=== PATIENT | female | born 1975 | race Caucasian/White ===

== ENCOUNTER 2023-03-25 11:44 | Day surgery (SDC) | payer OTHER ==
[~2023-03-25] VITALS: Ht 167.6 cm; Wt 104.5 kg
[~2023-03-25 11:44] MED LIST: COZAAR25 MG PO; MULTI VITAMIN1 EACH PO; SYNTHROID25 MCG PO; VITAMIN D310 MC4 PO
[2023-03-25 12:07] VITALS: BP 129/82
--- NOTE | 2023-03-25 13:28 | NUR ---
UPDATED PATIENT ON WAIT TIME FOR SURGERY. PROVIDED PATIENT WITH ANOTHER WARM BLANKET. NO OTHER NEEDS AT THIS TIME.
[2023-03-25 15:34] VITALS: BP 112/92
--- NOTE | 2023-03-25 15:59 | NUR ---
03/25/23 1559 Dona Trammell 1513 PT ARRIVED IN PACU AWAKE WITH NO C/O'S. ABD SOFT. 1520 SITTING UP IN BED SIPPING ON WATER. 1530 DR AT BEDSIDE. ALL QUESTIONS ANSWERED. 1542 DC INSTRUCTIONS GIVEN. LEFT VIA W/C.
--- NOTE | 2023-03-25 19:08 | OR ---
[facility] [address], [place] [address] Signed DATE OF OPERATION: 03/25/2023 SURGEON: Viola Birmingham MD PREOPERATIVE DIAGNOSIS: History of polyps five years ago (2017) [place], [place]. POSTOPERATIVE DIAGNOSIS: Sigmoid diverticulosis. PROCEDURE: Total colonoscopy to cecum. ANESTHESIA: Intravenous sedation; fentanyl 200 mcg and Versed 8 mg. INDICATIONS: This 47-year-old white woman is a patient of Lars Jeffers PA-C, who was referred for screening colonoscopy. She underwent colonoscopy in [address] Liu in [place]. She was recommended to have a three year interval colonoscopy, but due to the COVID pandemic, she was unable to do so. Three months previously, she had rectal bleeding which she no longer has. She has no family history of colon cancer. She did have hysterectomy for uterine cancer in 2017. She currently has no rectal bleeding and no known family history of colon cancer. She is here for surveillance colonoscopy, understands the risk of bleeding, infection, and perforation. FINDINGS: The prep was excellent. Complete colonoscopy was undertaken with visualization of the cecum. There were diverticula of the sigmoid colon but they were not extensive and not particularly large. There were no other findings of note. DESCRIPTION OF PROCEDURE: The patient was brought to the endoscopy suite and placed in the lateral decubitus position, given intravenous sedation to the point of slurred speech and nystagmus. Digital rectal examination was normal. An Olympus video colonoscope was passed in the rectum and manipulated throughout the colon noting scattered diverticula of the sigmoid and left colon. The scope was ultimately passed to the proximal ascending colon. Additional support was given to allow for further advancement of the scope. The scope did not fully intubate the cecum, Electronically Signed By: VIOLA BIRMINGHAM MD 03/25/23 1908 PATIENT NAME: SYDNI POSEY OPERATIVE REPORT DATE OF : 73 REPORT #: [id number] PHYSICIAN: VIOLA BIRMINGHAM MD PCP: LARS JEFFERS PA-C REPORT IS CONFIDENTIAL AND NOT TO BE RELEASED WITHOUT AUTHORIZATION [facility] [address] [place] [id number] Signed but with the biopsy forceps, the mucosa behind the ileocecal valve could be elevated and evaluated and found to be normal. The scope was then withdrawn from that point and examination throughout showed no sign of polyps, only scattered diverticula of the left and sigmoid colon. Retroflexed view of the rectum was normal. The scope was removed and the patient was taken to the recovery room in good condition. CONCLUDING DIAGNOSIS: Diverticular changes. PLAN: Recommend repeat colonoscopy in 5 years based on history of polyps, sooner if symptoms should occur. Would recommend high-fiber diet based on diverticulosis. She will return to the ongoing care of Lars Jeffers. MD REHANA Gonzales/REJI /[id number] cc: Lars Jeffers PA-C Copies: ~ Electronically Signed By: VIOLA BIRMINGHAM MD 03/25/23 1908 PATIENT NAME: SYDNI POSEY OPERATIVE REPORT DATE OF : 73 REPORT #: [id number] PHYSICIAN: VIOLA BIRMINGHAM MD PCP: LARS JEFFERS PA-C REPORT IS CONFIDENTIAL AND NOT TO BE RELEASED WITHOUT AUTHORIZATION
== END 2023-03-25 15:42 | disposition home or self-care (01) ==
LOC: OPS 11:44 → DS 13:00 → OPS 13:00
PROVIDERS: ATTEND Surgery
PROC: 0DBH8ZX Excision of Cecum, Via Natural or Artificial Opening Endoscopic, Diagnostic (ICD-10-PCS; principal; 2023-03-25 13:00)
DX: Z12.11 Encounter for screening for malignant neoplasm of colon (principal); E03.9 Hypothyroidism, unspecified; I10 Essential (primary) hypertension; Z85.42 Personal history of malignant neoplasm of other parts of uterus; Z86.010 Personal history of colon polyps
CPT/HCPCS: 99153; G0500; J2250; J3010; J7121